=== PATIENT | female | born 1965 ===

== ENCOUNTER 2021-08-20 16:49 | Emergency (ER) | payer MEDICAID ==
[~2021-08-20] VITALS: Ht 162.6 cm; Wt 90.9 kg
[2021-08-20 17:01] VITALS: BP 150/86
== END 2021-08-20 21:39 | disposition left against medical advice (07) ==
LOC: ER 16:50
DX: M25.562 Pain in left knee (principal); Z53.21 Procedure and treatment not carried out due to patient leaving prior to being seen by health care provider
CPT/HCPCS: 73564

== ENCOUNTER 2021-08-26 15:06 | Emergency (ER) | payer MEDICAID ==
[~2021-08-26] VITALS: Ht 162.6 cm; Wt 90.9 kg
--- NOTE | 2021-08-26 15:23 | NUR ---
arrived for level 1 stroke alert. Onset spprox [id number] today.Pt is swazi speaking and has limited yakut. Pt was holding cell phone in left hand when hand and arm went numb. Pt actually dropped cell phone. Proceeded to drive self at some point to the hospital. Per interpretor service pt was in [facility] earlier today with left knee pain, but left before being seen. pt has h/o htn and takes a med for htn. Currently c/o headache. Has limited movement in left leg due to knee pain. Did try to lift off gurney but unable to hold left leg up due to pain. 1530 Pt was able to supervisor solder making CT and pivot to CT table without c/o pain in left knee at that time. NIH is 4. Pt has decreased sensation over left face, left arm and left leg to light touch. Has a subtle left arm drift as well. 1555 Tele neuro exam completed with Dr Vazquez. Admit for stroke work up. Not TPA candidate.
--- NOTE | 2021-08-26 15:27 | NUR ---
Elaine Stroke RN arrived, went to CT with patient.
[2021-08-26 15:41] LABS: BASOPHILS # (AUTO) 0.1 X10'3 (0-0.2); BASOPHILS % (AUTO) 0.6 % (0-1); EOSINOPHILS # (AUTO) 0.1 X10'3 (0-0.9); HEMATOCRIT 40.5 % (35.0-45.0); HEMOGLOBIN 13.7 g/dl (12.0-16.0); LYMPHOCYTES # (AUTO) 3.2 X10'3 (1.1-4.8); LYMPHOCYTES % (AUTO) 37.7 % (21-51); MEAN CORPUSCULAR HEMOGLOBIN 28.5 PG (27.0-31.0); MEAN CORPUSCULAR HGB CONC 33.8 g/dL (33.0-36.5); MEAN CORPUSCULAR VOLUME 84.3 FL (78-98); MEAN PLATELET VOLUME 7.5 FL (7.4-10.4); MONOCYTES # (AUTO) 0.6 X10'3 (0-0.9); MONOCYTES % (AUTO) 6.9 % (2-12); NEUTROPHILS # (AUTO) 4.6 X10'3 (1.8-7.7); NEUTROPHILS % (AUTO) 53.8 % (42-75); PLATELET COUNT 304 X10'3 (140-440); RED CELL DISTRIBUTION WIDTH 14.8 % (11.5-14.5); WHITE BLOOD COUNT 8.5 X10'3 (4.5-11.0)
[2021-08-26 15:45] LABS: PARTIAL THROMBOPLASTIN TIME 29 SECONDS (22-32)
[2021-08-26 15:46] LABS: ALANINE AMINOTRANSFERASE 24 U/L (12-78); ALBUMIN 3.9 G/DL (3.4-5.0); ALKALINE PHOSPHATASE 177 IU/L (46-116); ANION GAP 13 (8-16); ASPARTATE AMINO TRANSFERASE 23 U/L (10-37); BILIRUBIN,TOTAL 0.3 MG/DL (0.1-1.0); BLOOD UREA NITROGEN 16 MG/DL (7-18); BUN/CREATININE RATIO 24.6 (6.6-38.0); CALCIUM 8.8 MG/DL (8.5-10.1); CHLORIDE 105 MMOL/L (99-107); CREATININE 0.65 MG/DL (0.40-0.90); GLUCOSE 90 MG/DL (70-104); POTASSIUM 3.4 MMOL/L (3.5-5.1); SODIUM 144 MMOL/L (135-145); TOTAL CARBON DIOXIDE 25.7 MMOL/L (24-32); TOTAL PROTEIN 7.9 G/DL (6.4-8.2); eGFR > 90 ML/MIN
[2021-08-26 15:50] LABS: TROPONIN I < 0.04 NG/ML (0.0-0.05)
[2021-08-26] MEDS ORDERED: ketorolac trometh. 30mg/ml inj. IV ONE (16:25)
[2021-08-26] MEDS ORDERED: normal saline 1000ml 1,000 ML IV ONE (16:25)
[2021-08-26] MEDS ORDERED: proCHLORperazine 10 MG/2 ml inj IV ONE (16:25)
[2021-08-26] MEDS ORDERED: acetaminophen 325mg tablet PO ONE (16:25)
[2021-08-26 16:53] VITALS: BP 155/80
[2021-08-26] MEDS ORDERED: NAPR-996 PO (16:58)
[2021-08-26] MEDS ORDERED: CYCL-1 PO (16:58)
[2021-08-26] MEDS ORDERED: IBUP-1986 PO (16:58)
[2021-08-26] MEDS ORDERED: LISI40TA13 PO (16:58)
[2021-08-26] MEDS ORDERED: CHLO25TA10 PO (16:58)
[2021-08-26] MEDS ORDERED: aspirin 325mg tablet PO ONE (17:15)
[2021-08-26] MEDS ORDERED: atorvastatin 20mg tablet PO ONE (17:15)
--- NOTE | 2021-08-26 17:24 | NUR ---
PTS LOCAL CONTACT IS SON: NICA DAUGHERTY [phone]
--- NOTE | 2021-08-26 17:30 | NUR ---
AMBULATED WITH MIN ASSIST TO BR TO VOID. LIMPS A BIT BUT WELL TOLERATED.
[2021-08-26] MEDS ORDERED: bisacodyl 10mg suppository rectal RC PRN (18:40)
[2021-08-26] MEDS ORDERED: potassium Cl 40MEQ/1/2NS 520ml 520 ML IV PRN ×2 (18:40)
[2021-08-26] MEDS ORDERED: acetaminophen 650mg rectal suppository RC PRN (18:40)
[2021-08-26] MEDS ORDERED: magnesium 2GM in 50ml NS 50 ML IV PRN (18:40)
[2021-08-26] MEDS ORDERED: magnesium Cl slow-release 64mg tablet PO PRN (18:40)
[2021-08-26] MEDS ORDERED: normal saline 1000ml 1,000 ML IV SCH (18:40)
[2021-08-26] MEDS ORDERED: HYDROcodone/acetaminophen 10/325mg tab PO PRN (18:40)
[2021-08-26] MEDS ORDERED: diphenhydrAMINE 25mg capsule PO PRN (18:40)
[2021-08-26] MEDS ORDERED: PERFLUTREN PROTEIN-A MICROSPHR (Optison) 0.22 MG/ML 3ML VIAL IV PRN (18:40)
[2021-08-26] MEDS ORDERED: magnesium 4gm in 100ml NS 100 ML IV PRN (18:40)
[2021-08-26] MEDS ORDERED: magnesium hydroxide 30ml (MOM) UD suspension PO PRN (18:40)
[2021-08-26] MEDS ORDERED: potassium Cl 20 mEq SR tablet PO PRN ×2 (18:40)
[2021-08-26] MEDS ORDERED: ondansetron/PF 4mg/2ml inj IV PRN (18:40)
[2021-08-26] MEDS ORDERED: mag hydrox/Alum hydrox/simeth 30ml oral suspension PO PRN (18:40)
[2021-08-26] MEDS ORDERED: HYDROcodone/acetaminophen 5mg/325mg tablet PO PRN (18:40)
[2021-08-26] MEDS ORDERED: acetaminophen 325mg tablet PO PRN ×2 (18:40)
[2021-08-26] MEDS ORDERED: morphine 2 MG/ML inj. syringe IV PRN ×2 (18:40)
[2021-08-26] MEDS ORDERED: iohexol 350MG/ML 100ml bottle IV ONE (19:01)
--- NOTE | 2021-08-26 19:43 | NUR ---
pt not in room, looked all over ER, plus CT,MRI AND XRAY. NO ANSWE, ROOM SHOWED HOSPITAL GOWN ON FLOOR ALL PULSE AND EKG LEADS, CALL [facility] BECAUSE NO iv IN ROOM
[2021-08-26 19:49] LABS: HEMOGLOBIN A1C 5.6 % (4.5-6.2)
[2021-08-26] MEDS ORDERED: heparin, porcine 5000 units/ml vial SQ SCH (20:00)
[2021-08-26] MEDS ORDERED: docusate sod 100mg capsule PO SCH (20:00)
[2021-08-26] MEDS ORDERED: K and/or MAG REPLACEMENT MC SCH (20:00)
[2021-08-27] MEDS ORDERED: atorvastatin 10mg tablet PO SCH (08:00)
[2021-08-27] MEDS ORDERED: aspirin 325mg tablet, delayed-release (Ecotrin) PO SCH (08:00)
== END 2021-08-26 19:43 | disposition left against medical advice (07) ==
LOC: ER 15:07 → UNDOADMIN 18:44 → PCU 3S 18:44 → UNDODISIN 19:43 → ER 19:43
DX: R20.0 Anesthesia of skin (principal); R53.1 Weakness; I63.9 Cerebral infarction, unspecified; E11.9 Type 2 diabetes mellitus without complications; R29.703 NIHSS score 3; Z79.899 Other long term (current) drug therapy
CPT/HCPCS: 36415; 70450; 71045; 80053; 82948; 83036; 84484; 85025; 85610; 85651; 85730; 93005; 96361; 96374; 96375; 99291; J0780; J1885; J7030; Q9967; G0378